=== PATIENT | male | born 1995 | race African-American/Black ===

== ENCOUNTER 2019-03-19 14:34 | Emergency (ER) | payer MEDICAID ==
[~2019-03-19 14:34] MED LIST: RISPERDAL
[2019-03-19] MEDS ORDERED: HYDROcodone-ACET 5/325MG TAB PO ONE (15:00)
[2019-03-19] MEDS ORDERED: KETOROLAC TROMETH 30 MG/ML 1ML VIAL IV ONE (15:00)
[2019-03-19] MEDS ORDERED: KETOROLAC TROMETH 60MG/2ML VIAL IM ONE (15:00)
[2019-03-19] MEDS ORDERED: MORPHINE SULFATE 4 MG/ML SYR/VIAL IM ONE (15:15)
[2019-03-19] MEDS ORDERED: ONDANSETRON HCL 4 MG/2 ML VIAL IV ONE ×2 (15:15→21:45)
[2019-03-19 21:20] LABS: Basophils # (auto) 0 uL; Basophils % (auto) 0.2 % (0.0-2.0); Eosinophils # (auto) 0 uL; Eosinophils % (auto) 0.3 % (0.0-7.0); Hematocrit 38.5 % (41.0-53.0); Mean Corpuscular Hemoglobin 30.2 pg (28.0-32.0); Mean Corpuscular Hgb Conc. 33.8 g/dL (32.0-36.0); Mean Corpuscular Volume 89.3 fL (80.0-100.0); Monocytes # (auto) 0.7 uL; Monocytes % (auto) 6.4 % (0.0-12.0); Neutrophils # (auto) 8.7 uL; Neutrophils % (auto) 83.1 % (37.0-80.0); Platelet Count (auto) 158 10^3/uL (140-450); Red Blood Cells 4.31 10^6/uL (4.5-5.90); Red Cell Distribution Width 13.3 % (11.8-14.3); White Blood Cell 10.4 10^3/uL (4.4-10.8)
[2019-03-19] MEDS ORDERED: IOHEXOL 300 MG/ML 100ML BOTTLE IJ ONE (21:21)
[2019-03-19] MEDS ORDERED: ONDANSETRON HCL 4 MG/2 ML VIAL ONE (21:32)
[2019-03-19] MEDS ORDERED: MORPHINE SULFATE 4 MG/ML SYR/VIAL ONE (21:32)
[2019-03-19 21:40] LABS: Albumin 3.7 g/dL (3.4-5.0); BUN/Creatinine Ratio 10.5; Calcium 8.7 mg/dL (8.5-10.1); Potassium 3.4 mmol/L (3.5-5.1)
[2019-03-19 21:43] LABS: Bilirubin, Total 0.9 mg/dL (0.2-1.0); Total Protein 6.7 g/dL (6.4-8.2)
[2019-03-19] MEDS ORDERED: MORPHINE SULFATE 4 MG/ML SYR/VIAL IV ONE (21:45)
[2019-03-19 22:08] LABS: INR 1.08 (0.9-1.15); Partial Thromboplastin Time 28.5 sec (23.64-32.05)
[2019-03-19 23:36] VITALS: BP 98/56
== END 2019-03-19 23:48 | disposition short-term general hospital (02) ==
LOC: EDBD 14:34 → ER 14:41
DX: S22.049A Unspecified fracture of fourth thoracic vertebra, initial encounter for closed fracture (principal); S12.9XXA Fracture of neck, unspecified, initial encounter; S36.899A Unspecified injury of other intra-abdominal organs, initial encounter; J93.9 Pneumothorax, unspecified; S40.211A Abrasion of right shoulder, initial encounter; S00.81XA Abrasion of other part of head, initial encounter; F17.210 Nicotine dependence, cigarettes, uncomplicated; F12.10 Cannabis abuse, uncomplicated; W18.09XA Striking against other object with subsequent fall, initial encounter; Y93.89 Activity, other specified; Y92.89 Other specified places as the place of occurrence of the external cause; Y99.8 Other external cause status
CPT/HCPCS: 36415; 70450; 71046; 71260; 72125; 72128; 73030; 74177; 80053; 85025; 85610; 85730; 96372; 96374; 96375; 96376; 99285; J1885; J2270; J2405; L0120; Q9967; 81001